=== PATIENT | female | born 1990 ===

== ENCOUNTER 2020-05-14 08:15 | Outpatient (CLI) | payer BC ==
[2020-05-14 16:20] LABS: SARS-CoV-2 PCR by NAA Not Detected (NotDetected)
== END 2020-05-14 08:16 | disposition home or self-care (01) ==
LOC: LABBT 08:15
PROVIDERS: ATTEND Student in an Organized Health Care Education/Training Program
DX: Z20.822 Contact with and (suspected) exposure to COVID-19 (principal)
CPT/HCPCS: 87635; U0003; U0005